=== PATIENT | female | born 1990 | race Caucasian/White ===

== ENCOUNTER 2019-05-04 12:03 | Emergency (ER) | payer OTHER ==
[~2019-05-04] VITALS: Ht 177.8 cm; Wt 88.6 kg
[2019-05-04] MEDS ORDERED: PROZ10CA7 PO (13:20)
[2019-05-04] MEDS ORDERED: EFFE37.5 PO (13:20)
[2019-05-04] MEDS ORDERED: ACETAMINOPHEN 325 MG TAB PO ONE (13:45)
[2019-05-04] MEDS ORDERED: KETOROLAC 60 MG/2 ML VIAL (J1885) IM ONE (13:45)
[2019-05-04 14:26] VITALS: BP 137/89
[2019-05-04] MEDS ORDERED: KETO10TAB PO (14:28)
[2019-05-04] MEDS ORDERED: CYCL10TA PO (14:28)
== END 2019-05-04 14:34 | disposition home or self-care (01) ==
LOC: M ED 12:03
DX: S39.012A Strain of muscle, fascia and tendon of lower back, initial encounter (principal); X58.XXXA Exposure to other specified factors, initial encounter; Y92.89 Other specified places as the place of occurrence of the external cause; Z79.899 Other long term (current) drug therapy
CPT/HCPCS: 96372; 99283; J1885

== ENCOUNTER → 2020-09-20 | Outpatient (CLI) | payer OTHER ==
[~2020-09-20] MED LIST: CYCL-707 PO; EFFE37.5 PO; KETO10TAB PO; PROZ10CA7 PO
[2020-09-20 07:45] LABS: HCG, SERUM QUANTITATIVE < 1.0 MIU/ML; THYROID STIMULATING HORMONE 0.965 uIU/ML (0.358-3.740)
[2020-09-20 10:57] LABS: PROGESTERONE 0.21 NG/ML
[2020-09-20 10:59] LABS: ESTRADIOL 67.7 PG/ML; FOLLICLE STIMULATING HORMONE 6.4 mIU/mL; LUTEINIZING HORMONE 4.6 mIU/mL
== END ==
LOC: M LAB 06:36
PROVIDERS: ATTEND Obstetrics & Gynecology Reproductive Endocrinology
DX: E28.9 Ovarian dysfunction, unspecified (principal)

== ENCOUNTER → 2020-09-23 | Outpatient (CLI) | payer OTHER ==
[2020-09-23 09:38] LABS: ESTRADIOL 65.5 PG/ML; LUTEINIZING HORMONE 4.4 mIU/mL; PROGESTERONE 0.21 NG/ML
== END ==
LOC: M LAB 06:33
PROVIDERS: ATTEND Obstetrics & Gynecology Reproductive Endocrinology
DX: E28.9 Ovarian dysfunction, unspecified (principal)

== ENCOUNTER → 2020-09-26 | Outpatient (CLI) | payer OTHER ==
[2020-09-26 09:40] LABS: ESTRADIOL 148.3 PG/ML; LUTEINIZING HORMONE 6.6 mIU/mL; PROGESTERONE 0.24 NG/ML
== END ==
LOC: M LAB 06:35
PROVIDERS: ATTEND Obstetrics & Gynecology Reproductive Endocrinology
DX: E28.9 Ovarian dysfunction, unspecified (principal)

== ENCOUNTER → 2020-10-06 | Outpatient (CLI) | payer OTHER ==
[2020-10-06 08:03] LABS: ESTRADIOL 137.3 PG/ML; PROGESTERONE 30.68 NG/ML
== END ==
LOC: M LAB 06:30
PROVIDERS: ATTEND Obstetrics & Gynecology Reproductive Endocrinology
DX: E28.9 Ovarian dysfunction, unspecified (principal)

== ENCOUNTER → 2020-10-13 | Outpatient (CLI) | payer OTHER ==
[2020-10-13 07:25] LABS: HCG, SERUM QUANTITATIVE < 1.0 MIU/ML
[2020-10-13 09:58] LABS: PROGESTERONE 7.65 NG/ML
== END ==
LOC: M LAB 06:09
PROVIDERS: ATTEND Obstetrics & Gynecology Reproductive Endocrinology
DX: E28.9 Ovarian dysfunction, unspecified (principal)

== ENCOUNTER → 2020-10-17 | Outpatient (CLI) | payer OTHER ==
[2020-10-17 11:35] LABS: HCG, SERUM QUANTITATIVE < 1.0 MIU/ML; THYROID STIMULATING HORMONE 0.603 uIU/ML (0.358-3.740)
[2020-10-17 11:36] LABS: ESTRADIOL 45.4 PG/ML; LUTEINIZING HORMONE 5.1 mIU/mL
[2020-10-17 14:19] LABS: FOLLICLE STIMULATING HORMONE 7.6 mIU/mL
== END ==
LOC: M LAB 10:18
PROVIDERS: ATTEND Obstetrics & Gynecology Reproductive Endocrinology
DX: E28.9 Ovarian dysfunction, unspecified (principal)

== ENCOUNTER → 2020-10-24 | Outpatient (CLI) | payer OTHER ==
[2020-10-24 14:28] LABS: ESTRADIOL 94.5 PG/ML; LUTEINIZING HORMONE 1.7 mIU/mL; PROGESTERONE 0.26 NG/ML
== END ==
LOC: M LAB 06:36
PROVIDERS: ATTEND Obstetrics & Gynecology Reproductive Endocrinology
DX: E28.9 Ovarian dysfunction, unspecified (principal)

== ENCOUNTER → 2020-11-01 | Outpatient (CLI) | payer OTHER ==
[2020-11-01 09:47] LABS: ESTRADIOL 221.9 PG/ML
== END ==
LOC: M LAB 06:14
PROVIDERS: ATTEND Obstetrics & Gynecology Reproductive Endocrinology
DX: E28.9 Ovarian dysfunction, unspecified (principal)

== ENCOUNTER → 2020-11-08 | Outpatient (CLI) | payer OTHER ==
[2020-11-08 07:19] LABS: HCG, SERUM QUANTITATIVE < 1.0 MIU/ML
[2020-11-08 10:53] LABS: PROGESTERONE 11.39 NG/ML
== END ==
LOC: M LAB 06:18
PROVIDERS: ATTEND Obstetrics & Gynecology Reproductive Endocrinology
DX: Z32.00 Encounter for pregnancy test, result unknown (principal)

== ENCOUNTER → 2021-01-31 | Outpatient (CLI) | payer OTHER ==
[2021-01-31 07:44] LABS: HCG, SERUM QUANTITATIVE < 1.0 MIU/ML
[2021-01-31 08:29] LABS: ESTRADIOL 43.5 PG/ML; FOLLICLE STIMULATING HORMONE 6.2 mIU/mL; LUTEINIZING HORMONE 4.1 mIU/mL; PROGESTERONE 0.33 NG/ML
== END ==
LOC: M LAB 06:23
PROVIDERS: ATTEND Obstetrics & Gynecology Reproductive Endocrinology
DX: N97.9 Female infertility, unspecified (principal)

== ENCOUNTER → 2021-02-03 | Outpatient (CLI) | payer OTHER ==
[2021-02-03 08:10] LABS: ESTRADIOL 57.3 PG/ML; PROGESTERONE 0.3 NG/ML
== END ==
LOC: M LAB 06:00
PROVIDERS: ATTEND Obstetrics & Gynecology Reproductive Endocrinology
DX: Z31.83 Encounter for assisted reproductive fertility procedure cycle (principal)

== ENCOUNTER → 2021-02-06 | Outpatient (CLI) | payer OTHER ==
[2021-02-06 10:24] LABS: ESTRADIOL 144.3 PG/ML; LUTEINIZING HORMONE 3.2 mIU/mL; PROGESTERONE 0.21 NG/ML
== END ==
LOC: M LAB 06:03
PROVIDERS: ATTEND Obstetrics & Gynecology Reproductive Endocrinology
DX: E28.9 Ovarian dysfunction, unspecified (principal)

== ENCOUNTER → 2021-02-15 | Outpatient (CLI) | payer OTHER ==
[2021-02-15 09:57] LABS: PROGESTERONE 84.91 NG/ML
== END ==
LOC: M LAB 08:00
PROVIDERS: ATTEND Obstetrics & Gynecology Reproductive Endocrinology
DX: Z32.00 Encounter for pregnancy test, result unknown (principal)

== ENCOUNTER → 2021-02-22 | Outpatient (CLI) | payer OTHER ==
[2021-02-22 08:44] LABS: HCG, SERUM QUANTITATIVE < 1.0 MIU/ML
[2021-02-22 09:05] LABS: PROGESTERONE 16.43 NG/ML
== END ==
LOC: M LAB 07:33
PROVIDERS: ATTEND Obstetrics & Gynecology Reproductive Endocrinology
DX: Z32.00 Encounter for pregnancy test, result unknown (principal)

== ENCOUNTER → 2021-02-28 | Outpatient (CLI) | payer OTHER ==
[2021-02-28 08:55] LABS: HCG, SERUM QUANTITATIVE < 1.0 MIU/ML
[2021-02-28 11:58] LABS: LUTEINIZING HORMONE 7.2 mIU/mL; PROGESTERONE 0.38 NG/ML
[2021-02-28 11:59] LABS: ESTRADIOL 68.4 PG/ML; FOLLICLE STIMULATING HORMONE 8.8 mIU/mL
== END ==
LOC: M LAB 07:08
PROVIDERS: ATTEND Obstetrics & Gynecology Reproductive Endocrinology
DX: N97.9 Female infertility, unspecified (principal)

== ENCOUNTER → 2021-03-06 | Outpatient (CLI) | payer OTHER ==
[2021-03-06 09:44] LABS: ESTRADIOL 150.9 PG/ML; LUTEINIZING HORMONE 2.5 mIU/mL; PROGESTERONE 0.39 NG/ML
== END ==
LOC: M LAB 07:12
PROVIDERS: ATTEND Obstetrics & Gynecology Reproductive Endocrinology
DX: E28.9 Ovarian dysfunction, unspecified (principal)

== ENCOUNTER → 2021-03-08 | Outpatient (CLI) | payer OTHER ==
[2021-03-08 08:45] LABS: ESTRADIOL 268.7 PG/ML; PROGESTERONE 0.21 NG/ML
== END ==
LOC: M LAB 06:29
PROVIDERS: ATTEND Obstetrics & Gynecology Reproductive Endocrinology
DX: E28.9 Ovarian dysfunction, unspecified (principal)

== ENCOUNTER 2021-03-20 15:27 | Emergency (ER) | payer OTHER ==
[~2021-03-20] VITALS: Ht 177.8 cm; Wt 97.0 kg
[2021-03-20 15:27] VITALS: BP 121/70
[2021-03-20] MEDS ORDERED: PRED5TA PO (16:13)
[2021-03-20] MEDS ORDERED: PROG50IN4 IM (16:13)
[2021-03-20] MEDS ORDERED: ENDO100S VG (16:15)
== END 2021-03-20 22:05 | disposition left against medical advice (07) ==
LOC: M ED 15:27
DX: Z53.21 Procedure and treatment not carried out due to patient leaving prior to being seen by health care provider (principal)

== ENCOUNTER → 2021-03-21 | Outpatient (CLI) | payer OTHER ==
[~2021-03-21] MED LIST changes: +ENDO100S VG; +PRED5TA PO; +PROG50IN4 IM
[2021-03-21 10:20] LABS: PROGESTERONE 28.18 NG/ML
== END ==
LOC: M LAB 07:21
PROVIDERS: ATTEND Obstetrics & Gynecology Reproductive Endocrinology
DX: Z31.49 Encounter for other procreative investigation and testing (principal)

== ENCOUNTER → 2021-03-27 | Outpatient (CLI) | payer OTHER ==
[2021-03-27 09:54] LABS: HCG, SERUM QUANTITATIVE < 1.0 MIU/ML
[2021-03-27 11:20] LABS: PROGESTERONE 45.91 NG/ML
== END ==
LOC: M LAB 08:09
PROVIDERS: ATTEND Obstetrics & Gynecology Reproductive Endocrinology
DX: Z32.00 Encounter for pregnancy test, result unknown (principal)

== ENCOUNTER → 2021-04-04 | Outpatient (CLI) | payer OTHER ==
[2021-04-04 08:16] LABS: HCG, SERUM QUANTITATIVE < 1.0 MIU/ML
[2021-04-04 09:18] LABS: PROGESTERONE 0.63 NG/ML
[2021-04-04 09:19] LABS: ESTRADIOL 43.6 PG/ML; LUTEINIZING HORMONE 4.5 mIU/mL
[2021-04-04 09:20] LABS: FOLLICLE STIMULATING HORMONE 7.1 mIU/mL
== END ==
LOC: M LAB 07:01
PROVIDERS: ATTEND Obstetrics & Gynecology Reproductive Endocrinology
DX: Z31.83 Encounter for assisted reproductive fertility procedure cycle (principal)

== ENCOUNTER → 2021-04-10 | Outpatient (CLI) | payer OTHER ==
[2021-04-10 08:09] LABS: HCG, SERUM QUANTITATIVE < 1.0 MIU/ML
[2021-04-10 08:49] LABS: ESTRADIOL 209.1 PG/ML; LUTEINIZING HORMONE 4.5 mIU/mL; PROGESTERONE 0.21 NG/ML
[2021-04-10 08:50] LABS: FOLLICLE STIMULATING HORMONE 5.9 mIU/mL
== END ==
LOC: M LAB 06:58
PROVIDERS: ATTEND Obstetrics & Gynecology Reproductive Endocrinology
DX: Z31.83 Encounter for assisted reproductive fertility procedure cycle (principal)

== ENCOUNTER → 2021-04-21 | Outpatient (CLI) | payer OTHER ==
[2021-04-21 11:21] LABS: ESTRADIOL 256.9 PG/ML; PROGESTERONE 41.64 NG/ML
== END ==
LOC: M LAB 06:48
PROVIDERS: ATTEND Obstetrics & Gynecology Reproductive Endocrinology
DX: Z31.49 Encounter for other procreative investigation and testing (principal)

== ENCOUNTER → 2021-04-26 | Outpatient (CLI) | payer OTHER ==
[2021-04-26 09:40] LABS: PROGESTERONE 34.15 NG/ML
== END ==
LOC: M LAB 07:38
PROVIDERS: ATTEND Obstetrics & Gynecology Reproductive Endocrinology
DX: Z32.00 Encounter for pregnancy test, result unknown (principal)

== ENCOUNTER → 2021-04-28 | Outpatient (CLI) | payer OTHER ==
[2021-04-28 10:47] LABS: THYROID STIMULATING HORMONE 1.49 uIU/ML (0.358-3.740)
[2021-04-28 10:49] LABS: ESTRADIOL 367.6 PG/ML; PROGESTERONE 58.6 NG/ML
== END ==
LOC: M LAB 08:25
PROVIDERS: ATTEND Obstetrics & Gynecology Reproductive Endocrinology
DX: Z32.01 Encounter for pregnancy test, result positive (principal)

== ENCOUNTER → 2021-05-02 | Outpatient (CLI) | payer OTHER ==
[2021-05-02 11:56] LABS: PROGESTERONE 50.5 NG/ML
[2021-05-02 11:57] LABS: ESTRADIOL 330.3 PG/ML
== END ==
LOC: M LAB 07:16
PROVIDERS: ATTEND Obstetrics & Gynecology Reproductive Endocrinology
DX: O09.00 Supervision of pregnancy with history of infertility, unspecified trimester (principal); Z3A.00 Weeks of gestation of pregnancy not specified

== ENCOUNTER → 2021-05-12 | Outpatient (CLI) | payer OTHER ==
[2021-05-12 09:07] LABS: ESTRADIOL 282.2 PG/ML; PROGESTERONE 46.95 NG/ML
== END ==
LOC: M LAB 06:43
PROVIDERS: ATTEND Obstetrics & Gynecology Reproductive Endocrinology
DX: O09.00 Supervision of pregnancy with history of infertility, unspecified trimester (principal); Z3A.00 Weeks of gestation of pregnancy not specified

== ENCOUNTER → 2021-05-19 | Outpatient (CLI) | payer OTHER | LOC: M LAB 06:37 | PROVIDERS: ATTEND Obstetrics & Gynecology Reproductive Endocrinology | DX: O02.1 Missed abortion (principal) ==

== ENCOUNTER → 2021-05-26 | Outpatient (CLI) | payer OTHER | LOC: M LAB 06:33 | PROVIDERS: ATTEND Obstetrics & Gynecology Reproductive Endocrinology | DX: O02.1 Missed abortion (principal) ==

== ENCOUNTER → 2022-01-01 | Outpatient (CLI) | payer OTHER ==
[2022-01-01 09:53] LABS: ESTRADIOL 209.2 PG/ML; LUTEINIZING HORMONE 5.2 mIU/mL; PROGESTERONE 0.21 NG/ML
== END ==
LOC: M LAB 06:40
PROVIDERS: ATTEND Obstetrics & Gynecology Reproductive Endocrinology
DX: Z31.83 Encounter for assisted reproductive fertility procedure cycle (principal)